=== PATIENT | male | born 2000 | race Hispanic/Latino ===

== ENCOUNTER 2018-12-20 12:19 | Emergency (ER) | payer OTHER ==
[2018-12-20] MEDS ORDERED: DIPHENHYDRAMINE HCL 25 MG CAPSULE ONE (12:30)
== END 2018-12-20 12:39 | disposition home or self-care (01) ==
LOC: EDH 12:19
DX: S20.369A Insect bite (nonvenomous) of unspecified front wall of thorax, initial encounter (principal); W57.XXXA Bitten or stung by nonvenomous insect and other nonvenomous arthropods, initial encounter; Y93.89 Activity, other specified; Y92.89 Other specified places as the place of occurrence of the external cause; Y99.8 Other external cause status
CPT/HCPCS: 99283; Q0163